=== PATIENT | female | born 1950 | race Two or more races ===

== ENCOUNTER 2024-10-26 12:09 | Emergency (ER) | payer OTHER ==
[~2024-10-26] VITALS: Ht 149.9 cm; Wt 73.5 kg
[2024-10-26] MEDS ORDERED: SYNTHROID112 MCG PO (13:33)
[2024-10-26] MEDS ORDERED: GLUMETZA500 MG PO (13:34)
[2024-10-26] MEDS ORDERED: COZAAR100 MG PO (13:34)
[2024-10-26 15:38] LABS: HEMATOCRIT 36.8 % (36.0-45.00); HEMOGLOBIN 12.5 g/dL (12.0-15.00); MEAN CORPUSCULAR HEMOGLOBIN 28.6 pg (27.00-32.0); PLATELET COUNT 204 K/uL (150-450); RED BLOOD COUNT 4.39 M/uL (4.00-6.00); RED CELL DISTRIBUTION WIDTH 14.9 % (11.5-14.5)
[2024-10-26 15:54] LABS: BILIRUBIN TOTAL 0.44 mg/dL (0.3-1.2); CALCIUM 9.5 mg/dL (8.5-10.1); CREATININE SERUM 0.79 mg/dL (0.55-1.02); GFR 70.76; GLOBULINA 3.9 G/DL (2.4-3.5); POTASSIUM 4.15 mEq/L (3.5-5.1); TOTAL PROTEIN 7.9 gm/dL (6.4-8.2)
[2024-10-26] MEDS ORDERED: KETOROLAC TROMETHAMINE 60 MG VIAL IM ONE ×2 (17:23→17:30)
== END 2024-10-26 17:41 ==
LOC: ER 12:11
PROVIDERS: Emergency Medicine
DX: B34.9 Viral infection, unspecified (principal); R07.89 Other chest pain; I10 Essential (primary) hypertension; E11.9 Type 2 diabetes mellitus without complications; Z79.84 Long term (current) use of oral hypoglycemic drugs; E03.9 Hypothyroidism, unspecified